=== PATIENT | female | born 1980 | race Caucasian/White ===

== ENCOUNTER 2016-12-09 01:56 | Emergency (ER) | payer MEDICAID, OTHER ==
[~2016-12-09] VITALS: Ht 157.5 cm; Wt 64.5 kg
[2016-12-09 02:00] VITALS: Ht 157.5 cm; Wt 64.5 kg
--- NOTE | 2016-12-09 02:16 | ERA ---
ER Documentation Chief Complaint Date/Time DATE: 12/09/16 TIME: 02:15 Chief Complaint Dizziness HPI The patient is 36-year-old female, presenting to the ER because of acute dizziness, she feels as if the room is spinning.. She was seen at [facility] 4 days ago and had a negative brain CT and extensively negative blood test. She was discharged with Antivert which seemed to provide some relief. 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 Medications Home Meds Active Scripts Ondansetron (Ondansetron Odt) 4 Mg Tab.rapdis, 4 MG PO Q6H Y for NAUSEA AND/OR VOMITING, #10 TAB Prov:LOTUS GUZMAN MD 12/09/16 Meclizine Hcl* (Antivert*) 12.5 Mg Tab, 25 MG PO Q6H Y for DIZZINESS, #20 TAB Prov:LOTUS GUZMAN MD 12/09/16 Reported Medications Cholecalciferol* (Vitamin D*) 400 Unit Tablet, 400 UNIT PO DAILY, TAB 12/09/16 Cyanocobalamin* (Vitamin B-12*) 1,000 Mcg Tablet.sa, 1000 MCG PO DAILY, TAB 12/09/16 Paloma-3 Fatty Acids (Fish Oil) 300 Mg Capsule, 300 MG PO, CAP 12/09/16 Meclizine Hcl* (Meclizine Hcl*) 25 Mg Tablet, 25 MG PO Q8H Y for DIZZINESS, TAB 12/09/16 Allergies Allergies: Coded Allergies: Penicillins (Unverified Allergy, Mild, 12/09/16) acetaminophen (Unverified Allergy, Mild, 12/09/16) PMhx/Soc History of Surgery: Yes (TUBAL LIGATION, CHOLECYSTECTOMY, ) Anesthesia Reaction: No Hx Neurological Disorder: No Hx Respiratory Disorders: No Hx Cardiac Disorders: No Hx Psychiatric Problems: No Hx Miscellaneous Medical Probl: No Hx Alcohol Use: No Hx Substance Use: No Hx Tobacco Use: No Physical Exam Vitals Vital Signs Date Time Temp Pulse Resp B/P Pulse Ox O2 Delivery O2 Flow Rate FiO2 12/09/16 02:26 105 18 134/86 100 Room Air 12/09/16 02:00 98.2 109 18 141/83 99 Physical Exam Const: No acute distress. Head: Atraumatic. Eyes: Normal Conjunctiva. ENT: Normal External Ears, Nose and Mouth. Bilateral ear canal with moderate amount of cerumen Neck: Full range of motion. No meningismus. Resp: Clear to auscultation bilaterally. Cardio: Regular rate and rhythm. Abd: Soft, non distended, normal bowel sounds, non tender. Skin: No petechiae or rashes. Back: No midline or flank tenderness. Ext: No cyanosis, or edema. Neur: Awake and alert. No focal deficit Psych: Normal Mood and Affect. Result Diagram: 12/09/16 0316 12/09/16 0316 Results 24 hrs Laboratory Tests Test 12/09/16 03:16 12/09/16 04:49 White Blood Count 11.110^3/ul Red Blood Count 4.8310^6/ul Hemoglobin 15.0g/dl Hematocrit 44.0% Mean Corpuscular Volume 91.1fl Mean Corpuscular Hemoglobin 31.1pg Mean Corpuscular Hemoglobin Concent 34.1g/dl Red Cell Distribution Width 12.2% Platelet Count 99457^3/UL Mean Platelet Volume 10.4fl Neutrophils % 73.0% Lymphocytes % 20.1% Monocytes % 5.7% Eosinophils % 0.6% Basophils % 0.4% Nucleated Red Blood Cells % 0.0/100WBC Neutrophils # 8.110^3/ul Lymphocytes # 2.210^3/ul Monocytes # 0.610^3/ul Eosinophils # 0.110^3/ul Basophils # 0.110^3/ul Nucleated Red Blood Cells # 0.010^3/ul Sodium Level 139mmol/L Potassium Level 4.8mmol/L Chloride Level 103mmol/L Carbon Dioxide Level 26mmol/L Anion Gap 15 Blood Urea Nitrogen 18mg/dl Creatinine 0.64mg/dl Glucose Level 88mg/dl Calcium Level 9.4mg/dl Urine Opiates Screen Negative Urine Barbiturates Negative Urine Amphetamines Screen Negative Urine Benzodiazepines Screen Negative Urine Cocaine Screen Negative Urine Cannabinoids Negative Bedside Urine pH (LAB) 5.5 Bedside Urine Protein (LAB) Negative Bedside Urine Glucose (UA) Negative Bedside Urine Ketones (LAB) Negative Bedside Urine Blood Trace-lysed Bedside Urine Nitrite (LAB) Negative Bedside Urine Leukocyte Esterase (L Negative Current Medications Medications (Trade) Dose Ordered Sig/Caron Route PRN Reason Start Time Stop Time Status Last Admin Dose Admin Sodium Chloride (NS) 1,000 ml @ 1,000 mls/hr Q1H STAT IV 12/09/16 02:33 12/09/16 03:32 DC 12/09/16 04:33 Ondansetron HCl (Zofran Inj) 4 mg ONCE STAT IV 12/09/16 02:33 12/09/16 02:36 DC 12/09/16 04:34 Meclizine HCl (Antivert) 25 mg ONCE ONCE PO 12/09/16 03:00 12/09/16 03:01 DC 12/09/16 04:34 Procedures/MDM MEDICAL MAKING DECISION: The patient is a 36-year-old female, presenting with acute dizziness, most likely due to acute benign positional vertigo, acute cerumen impaction. She was treated liter normal saline for clinical dehydration , Zofran 4 mg IV for nausea, Antivert 25 g p.o. for dizziness with good response The differential diagnoses considered include but are not limited to central causes such as cerebellar infarct, cerebellar hemorrhage, cerebellar tumor, acoustic neuroma, peripheral causes such as benign positional vertigo, labyrinthitis, medication, Meniere's disease. Departure Diagnosis: Primary Impression: Dizziness Additional Impression: Impacted cerumen of both ears Condition: Good Comments She was discharged with Debrox, Zofran ODT, Antivert I discussed the findings with the patient. I advised the patient to follow-up with the primary physician in about 1-2 days, sooner if needed and return if any concern. The patient's blood pressure was elevated (>120/80) but appears stable without evidence of hypertension emergency or urgency. The patient was counseled about the risks of hypertension and urged to pursue outpatient monitoring and therapy within a week with their primary care physician. LOTUS GUZMAN MD Dec 09, 2016 02:16
[2016-12-09] MEDS ORDERED: CYAN100080 PO (02:23)
[2016-12-09] MEDS ORDERED: OMEG300C3 PO (02:23)
[2016-12-09] MEDS ORDERED: MECL-77 PO (02:23)
[2016-12-09] MEDS ORDERED: CHOL400T10 PO (02:23)
[2016-12-09] MEDS ORDERED: ONDANSETRON 4 MG INJ IV STA (02:33)
[2016-12-09] MEDS ORDERED: SOD CHLORIDE 0.9% 1,000 ML IV STA (02:33)
[2016-12-09] MEDS ORDERED: MECLIZINE 12.5 MG TAB PO ONE (03:00)
[2016-12-09 04:09] LABS: BARBITURATES Negative (NEGATIVE); BASOPHIL # 0.1 10^3/ul (0.0-0.1); BASOPHILS % 0.4 % (0.0-2.0); BENZODIAZEPINES Negative (NEGATIVE); CANNABINOIDS Negative (NEGATIVE); COCAINE Negative (NEGATIVE); EOSINOPHILS # 0.1 10^3/ul (0.0-0.5); EOSINOPHILS % 0.6 % (0.0-7.0); LYMPHOCYTES # 2.2 10^3/ul (0.8-2.9); LYMPHOCYTES % 20.1 % (15.0-51.0); MEAN CORPUSCULAR HEMOGLOBIN 31.1 pg (29.0-33.0); MEAN CORPUSCULAR HGB CONC 34.1 g/dl (32.0-37.0); MEAN CORPUSCULAR VOLUME 91.1 fl (82.0-101.0); MEAN PLATELET VOLUME 10.4 fl (7.4-10.4); MONOCYTE # 0.6 10^3/ul (0.3-0.9); MONOCYTES % 5.7 % (0.0-11.0); NEUTROPHIL # 8.1 10^3/ul (1.6-7.5); OPIATES Negative (NEGATIVE); PLATELET COUNT 263 10^3/UL (140-415); RED BLOOD COUNT 4.83 10^6/ul (4.20-5.40); RED CELL DISTRIBUTION WIDTH 12.2 % (11.5-14.5); WHITE BLOOD COUNT 11.1 10^3/ul (4.8-10.8)
[2016-12-09 04:12] LABS: CALCIUM 9.4 mg/dl (8.4-10.2); CREATININE 0.64 mg/dl (0.44-1.00); POTASSIUM 4.8 mmol/L (3.5-5.1)
[2016-12-09 04:13] LABS: ADD SCAN DIFF NO
[2016-12-09 04:45] LABS: URINE BLOOD (Dip) POC Trace-lysed (NEGATIVE)
[2016-12-09] MEDS ORDERED: MECL12.574 PO (04:52)
[2016-12-09] MEDS ORDERED: ONDA4TAB14 PO (04:53)
[2016-12-09] MEDS ORDERED: CARB15DR48 BOTH EARS (04:58)
[2016-12-09 05:56] VITALS: BP 118/90; PULSE 91; RESP 16; TEMP 98.1
== END 2016-12-09 05:58 | disposition home or self-care (01) ==
LOC: E/R 01:56
DX: R42 Dizziness and giddiness (principal); H61.23 Impacted cerumen, bilateral
CPT/HCPCS: 36415; 80048; 80307; 81003; 85025; 96374; J2405; J7030; Z7502; Z7610